=== PATIENT | female | born 1985 | race Two or more races ===

== ENCOUNTER → 2016-03-26 | Outpatient (CLI) | payer OTHER ==
--- NOTE | 2016-03-26 17:31 | DX ---
Right hand, 3 views. History: Pain after a box fell on hand. Findings: Normal mineralization and alignment. No evidence for acute fracture or dislocation. No sign ificant joint narrowing, periarticular erosion, periarticular spurring. Impression: Unremarkable right hand. No evidence for fracture.
== END ==
LOC: BRMIMAGING 16:04
PROVIDERS: ATTEND Internal Medicine
DX: M79.641 Pain in right hand (principal)
CPT/HCPCS: 73130-PO